=== PATIENT | female | born 1980 | race African-American/Black ===

== ENCOUNTER 2018-01-25 11:48 | Emergency (ER) | payer SELFPAY ==
[2018-01-25] MEDS ORDERED: Lidocaine 1% w/Epinephrine 1:100K 20 ML VIAL ONE (12:09)
[2018-01-25] MEDS ORDERED: Adacel (T-DAP) 0.5 ML VIAL ONE (12:37)
== END 2018-01-25 12:52 | disposition home or self-care (01) ==
LOC: ERS 11:48
DX: L02.411 Cutaneous abscess of right axilla (principal)
CPT/HCPCS: 10060; 87070; 87205; 90471; 90715; J2001

== ENCOUNTER 2019-03-08 18:46 | Emergency (ER) | payer SELFPAY ==
[2019-03-08] MEDS ORDERED: Lidocaine 1% w/Epinephrine 1:100K 20 ML VIAL ONE (19:09)
[2019-03-08] MEDS ORDERED: Adacel (T-DAP) 0.5 ML SYRINGE ONE (19:27)
== END 2019-03-08 19:45 | disposition home or self-care (01) ==
LOC: ERS 18:46
DX: L02.411 Cutaneous abscess of right axilla (principal)
CPT/HCPCS: 10060; 90471; 90715; J2001

== ENCOUNTER 2019-06-23 17:48 | Emergency (ER) | payer SELFPAY ==
[2019-06-23] MEDS ORDERED: diphenhydrAMINE 50 MG/ML VIAL ONE (18:45)
[2019-06-23] MEDS ORDERED: Ketorolac Tromethamine 30 MG/ML VIAL ONE (18:45)
[2019-06-23] MEDS ORDERED: Metoclopramide HCl 10 MG/2 ML VIAL ONE (18:45)
[2019-06-23] MEDS ORDERED: methylPREDNISolone Sod Succ/PF 125 MG/2 ML VIAL ONE (19:53)
== END 2019-06-23 20:45 | disposition home or self-care (01) ==
LOC: ERS 17:48
DX: G43.909 Migraine, unspecified, not intractable, without status migrainosus (principal)
CPT/HCPCS: 94760; 96365; 96375; J1200; J1885; J2765; J2930

== ENCOUNTER 2020-02-13 14:46 | Emergency (ER) | payer BC, SELFPAY ==
[2020-02-13 15:18] LABS: Bacteria/HPF None Seen HPF (None Seen); Bilirubin Negative (Negative); Blood, Urine Trace (Negative); Clarity Clear (Clear); Glucose, Urine (Dipstick) Normal (Negative); Leukocyte Negative Leu/uL (Negative); Nitrite Negative (Negative); Protein, Urine (Dipstick) 10 mg/dL (Neg-Trace); RBC/HPF 0-3 HPF (0-3); Squamous Epithelial 0-3 HPF (0-3); Urobilinogen Normal mg/dL (Less than 2); WBC/HPF 0-3 HPF (0-3)
[2020-02-13] MEDS ORDERED: Acetaminophen 500 MG TAB ONE (15:22)
[2020-02-13] MEDS ORDERED: Ketorolac Tromethamine 30 MG/ML VIAL ONE (15:22)
--- NOTE | 2020-02-13 16:08 | RAD ---
LUMBAR SPINE THREE VIEWS: 02/13/20 HISTORY: Low back pain. FINDINGS/IMPRESSION: Vertebral body heights are maintained. The disc spaces are also fairly well maintained. No fracture, subluxation, or bony destruction is seen. 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 POS: [facility]
== END 2020-02-13 16:15 | disposition home or self-care (01) ==
LOC: ERS 14:46
DX: M54.5 Low back pain (principal)
CPT/HCPCS: 72100; 81003; 81015; 96372; J1885

== ENCOUNTER 2020-06-04 08:00 | Emergency (ER) | payer BC ==
[2020-06-04] MEDS ORDERED: Proparacaine 0.5% Opth 15 ML BOT ONE (08:41)
[2020-06-04] MEDS ORDERED: Fluorescein Opthalmic Strip ONE (08:41)
== END 2020-06-04 09:12 | disposition home or self-care (01) ==
LOC: ERS 08:00
DX: H10.9 Unspecified conjunctivitis (principal)
CPT/HCPCS: 99282

== ENCOUNTER 2020-11-28 13:56 | Emergency (ER) | payer BC ==
[2020-11-28] MEDS ORDERED: Lidocaine 1% PF 5 ML VIAL ONE (16:13)
[2020-11-28] MEDS ORDERED: Morphine 4 MG/ML VIAL ONE (16:13)
[2020-11-28] MEDS ORDERED: Boostrix 0.5 ML (Tdap) VIAL ONE (16:40)
== END 2020-11-28 17:36 | disposition home or self-care (01) ==
LOC: ERS 13:56
DX: L02.411 Cutaneous abscess of right axilla (principal)
CPT/HCPCS: 10060; 90471; 90715; 96372; J2270

== ENCOUNTER 2020-12-09 10:50 | Emergency (ER) | payer BC ==
[2020-12-09] MEDS ORDERED: Ketorolac Tromethamine 30 MG/ML VIAL ONE (11:11)
[2020-12-09 11:48] LABS: #Basophils 0.1 thou/uL (0.0-0.2); #Eosinphils 0.1 thou/uL (0.0-0.7); #Lymphocytes 2.7 thou/uL (1.20-3.40); #Monocytes 0.6 thou/uL (0.11-0.59); #Neutrophils 4.2 thou/uL (1.40-6.50); %Basophils 0.7 % (0.0-1.0); %Lymphocytes 35.2 % (21.0-51.0); %Monocytes 8.3 % (0.0-10.0); %Neutrophils 54.9 % (42.0-75.0); Bilirubin Negative (Negative); Blood, Urine Negative (Negative); Clarity Clear (Clear); Glucose, Urine (Dipstick) Normal (Negative); Ketone, Urine Negative (Negative); Leukocyte Negative Leu/uL (Negative); Mean Corpuscular HGB CONC 31.9 g/dL (32.0-36.0); Mean Corpuscular Hemoglobin 25.4 pg (27.0-31.0); Mean Corpuscular Volume 79.7 fL (78.0-98.0); Mean Platelet Volume 9.4 fL (7.4-10.4); Nitrite Negative (Negative); Platelet Count 327 thou/uL (130-400); Protein, Urine (Dipstick) Negative (Neg-Trace); RBC Distribution Width 14.9 % (11.5-14.5); Red Blood Cell (RBC) Count 4.34 mill/uL (4.20-5.40); Specific Gravity, Urine 1.006 (1.002-1.036); Urobilinogen Normal mg/dL (Less than 2); White Blood Cell (WBC) Count 7.6 thou/uL (4.8-10.8); pH, Urine 5.5 (5.0-9.0)
[2020-12-09 12:16] LABS: ALT (SGPT) 15 U/L (8-55); AST (SGOT) 14 U/L (5-34); Albumin 4.1 g/dL (3.5-5.0); Alkaline Phosphatase 68 U/L (40-110); Anion Gap 12 mmol/L (10-20); BUN (Urea Nitrogen) 7 mg/dL (7.0-18.7); Bilirubin, Total 0.4 mg/dL (0.2-1.2); Calc. Creatinine Clearance 0 mL/min (70-130); Calcium 8.9 mg/dL (7.8-10.44); Carbon Dioxide 22 mmol/L (22-29); Chloride 106 mmol/L (98-107); Globulin 3.8 g/dL (2.4-3.5); Glucose 106 mg/dL (70-105); Lipase 31 U/L (8-78); Potassium 3.4 mmol/L (3.5-5.1); Protein, Total 7.9 g/dL (6.0-8.3); Sodium 137 mmol/L (136-145)
[2020-12-09 12:26] LABS: BHCG - Serum Negative (NEGATIVE); Pregs Control Background? CLEAR/WHITE (CLR/WHITE); Pregs Control Bar Appear? YES (CONTROL BAR)
== END 2020-12-09 12:25 | disposition home or self-care (01) ==
LOC: ERS 10:50
DX: R10.9 Unspecified abdominal pain (principal)
CPT/HCPCS: 74176; 80053; 81003; 83690; 84703; 85025; 96374; J1885

== ENCOUNTER 2021-08-04 07:42 | Emergency (ER) | payer BC, SELFPAY ==
[2021-08-04] MEDS ORDERED: Metoclopramide HCl 10 MG/2 ML VIAL ONE (08:10)
[2021-08-04] MEDS ORDERED: Acetaminophen 500 MG TAB ONE (08:10)
[2021-08-04] MEDS ORDERED: diphenhydrAMINE 50 MG/ML VIAL ONE (08:10)
== END 2021-08-04 11:30 | disposition home or self-care (01) ==
LOC: ERS 07:42
DX: R51.9 Headache, unspecified (principal)
CPT/HCPCS: 70450; 96374; 96375; J1200; J2765

== ENCOUNTER 2024-09-30 10:13 | Emergency (ER) | payer OTHER ==
[2024-09-30] MEDS ORDERED: Ketorolac Tromethamine 30 MG (1 mL) VIAL ONE (11:18)
== END 2024-09-30 12:37 | disposition home or self-care (01) ==
LOC: ERS 10:13
DX: K04.7 Periapical abscess without sinus (principal)
CPT/HCPCS: 96372; 99282; J1885

== ENCOUNTER 2025-08-26 01:31 | Emergency (ER) | payer OTHER ==
[2025-08-26] MEDS ORDERED: Albuterol 2.5 MG (3 mL) NEB ONE (02:17)
[2025-08-26] MEDS ORDERED: Albuterol 2.5 MG (0.5 mL) NEB ONE (02:17)
[2025-08-26 02:57] LABS: #Basophils 0.08 10x3/uL (0.0-0.2); #Eosinophils 0.16 10x3/uL (0.0-0.7); #Monocytes 1.05 10x3/uL (0.11-0.59); #Neutrophils 4.62 10x3/uL (1.40-6.50); %Basophils 0.8 % (0.0-1.0); %Eosinophils 1.5 % (0.0-10.0); %Lymphocytes 42.8 % (21.0-51.0); %Monocytes 10.1 % (0.0-10.0); %Neutrophils 44.5 % (42.0-75.0); Hematocrit 31.4 % (36.0-47.0); Hemoglobin 9.2 g/dL (12.0-16.0); Mean Corpuscular Hemoglobin 22.6 pg (27.0-31.0); Mean Corpuscular Volume 77.1 fL (78.0-98.0); Platelet Count 350 10x3/uL (130-400); Red Blood Cell (RBC) Count 4.07 mill/uL (4.20-5.40); White Blood Cell (WBC) Count 10.38 10x3/uL (4.8-10.8)
[2025-08-26 03:11] LABS: ALT (SGPT) 22 U/L (Less than 34); AST (SGOT) 30 U/L (11-34); Albumin 3.6 g/dL (3.1-4.5); Alkaline Phosphatase 84 U/L (40-110); Anion Gap 13 mmol/L (10-20); BUN (Urea Nitrogen) 6 mg/dL (7.0-18.7); Bilirubin, Total 0.3 mg/dL (0.3-1.2); Calc. Creatinine Clearance 0 mL/min (70-130); Calcium 8.9 mg/dL (7.8-10.44); Carbon Dioxide 23 mmol/L (22-29); Chloride 106 mmol/L (98-107); Globulin 3.2 g/dL (2.4-3.5); Glucose 107 mg/dL (70-105); Potassium 3.6 mmol/L (3.5-5.1); Sodium 138 mmol/L (136-145)
== END 2025-08-26 03:45 | disposition home or self-care (01) ==
LOC: ERS 01:31
DX: R06.02 Shortness of breath (principal); R05.9 Cough, unspecified
CPT/HCPCS: 36415; 71045; 80053; 84484; 85025; 93005; J7611